=== PATIENT | female | born 1980 | race Caucasian/White ===

== ENCOUNTER 2017-01-09 09:15 | Emergency (ER) | payer BC, OTHER ==
[2017-01-09] MEDS ORDERED: Ondansetron INJ* 2 MG/ML VIAL IV ONE (09:33)
[2017-01-09] MEDS: NS 0.9% 1000 ML* 2,000 ML IV ONE ×2 (09:49→10:46)
[2017-01-09 09:59] LABS: Hematocrit 42 % (35-47); Hemoglobin 14.1 g/dl (12.0-16.0); Mean Corpuscular HGB Conc 34 g/dl (31-36); Mean Corpuscular Hemoglobin 30 pg (27-31); Mean Corpuscular Volume 90 fL (80-97); Mean Platelet Volume 10 um3 (7.4-10.4); Red Blood Count 4.64 10^6/ul (4.0-5.4); Red Cell Distribution Width 15 % (10.5-15); White Blood Count 7.6 10^3/ul (3.5-10.8)
[2017-01-09 10:16] LABS: Albumin 3.4 g/dL (3.2-5.2); Calcium 8.3 mg/dL (8.6-10.3); EGFR African American 177.6 (>60); EGFR Non-African American 138.1 (>60); Globulin 3.2 g/dL (2-4); Potassium 3.6 mmol/L (3.5-5.0); Total Bilirubin 0.5 mg/dL (0.2-1.0); Total Protein 6.6 g/dL (6.4-8.9)
[2017-01-09 12:45] LABS: Urine Bilirubin Negative (Negative); Urine Glucose Negative (Negative); Urine Nitrite Negative (Negative)
[2017-01-09 15:30] VITALS: BP 155/70
--- NOTE | 2017-01-10 22:18 | ED ---
Yolette Wallace Rebecca, scribed for Mat Plasencia MD on 01/09/17 at 0941 . - HPI Summary HPI Summary: Pt is a 36 y/o F who presents to ED c/o abd pain. Pain began suddenly last night and has been intermittent since onset. Pain is diffuse without radiation, ranked 5/10 and characterized as cramping. Sx aggravated and alleviated by nothing. Additionally c/o V/D. reports she cannot keep water down. Denies back pain, dysuria and vaginal bleeding or discharge. Called her widwife today who advised she be evaluated by [facility] [place] ED for hydration. Pt is 17 weeks . A0. and daughter are experiencing similar sx. - History of Current Complaint Chief Complaint: EDAbdPain Stated Complaint: 17WKS PREG/POSS DEHYDRATION Time Seen by Provider: 01/09/17 09:32 Hx Obtained From: Patient Chief Complaint: Pain - Abdominal pain, Other: - V/D Onset/Duration: Started Days Ago - Last night Timing: Intermittent Severity: Moderate Current Severity: Moderate Pain Intensity: 5 Location of Pain: Diffuse Character: Cramping Aggravating Factors: Nothing Alleviating Factors: Nothing Associated Signs and Symptoms: Positive: Vomiting, Other: - Diarrhea. Negative : Back Pain, Urinary Symptoms, Vaginal Bleeding or Discharge - Assessment SAB: 0 IEA: 0 - Additional Pertinent History Maternal Blood Type and Rh: A Positive - Allergies/Home Medications Allergies/Adverse Reactions: Allergies Allergy/AdvReac Type Severity Reaction Status Date / Time Erythromycin Allergy Vomiting Verified 01/09/17 09:20 PMH/Surg Hx/FS Hx/Imm Hx Previously Healthy: Yes Endocrine/Hematology History: Denies: Hx Diabetes Cardiovascular History: Denies: Hx Hypertension Infectious Disease History: No Infectious Disease History: Reports: Traveled Outside the [place] in Last 30 Days - [place] - Family History Known Family History: Positive: Hypertension, Other - HLD, bowel CA - Social History Alcohol Use: None Substance Use Type: Reports: None Smoking Status (MU): Never Smoked Tobacco Have You Smoked in the Last Year: No Review of Systems Negative: Fever, Chills Negative: Photophobia, Erythema Negative: Sore Throat Negative: Chest Pain Negative: Shortness Of Breath, Cough Positive: Abdominal Pain - diffuse cramping, Vomiting, Diarrhea Positive: other - Denies vaginal bleeding. Negative: dysuria, discharge, hematuria Negative: Arthralgia, Edema Negative: Rash Neurological: Other - Denies dizziness All Other Systems Reviewed And Are Negative: Yes Physical Exam - Summary Physical Exam Summary: Constitutional: Well-developed, Well-nourished, Alert. (-) Distressed Skin: Warm, Dry HENT: Dry mucous membranes. Eyes: Conjunctiva normal Neck: Musculoskeletal ROM normal neck. (-) JVD, (-) Stridor, (-) Tracheal deviation Cardio: Rhythm regular, rate normal, Heart sounds normal; Intact distal pulses; The pedal pulses are 2+ and symmetric. Radial pulses are 2+ and symmetric. (-) Murmur Pulmonary/Chest wall: Effort normal. (-) Respiratory distress, (-) Wheezes, (-) Rales Abd: Soft, (-) Tenderness, (-) Distension, (-) Guarding, (-) Rebound Musculoskeletal: (-) Edema Lymph: (-) Cervical adenopathy Neuro: Alert, Oriented x3 Psych: Mood and affect Normal - Physical Exam Triage Information Reviewed: Yes Vital Signs Reviewed: Yes Diagnostics - Vital Signs Vital Signs Temp Pulse Resp BP Pulse Ox 01/09/17 09:21 98.2 F 91 15 119/52 99 - Laboratory Result Diagrams: 01/09/17 09:45 01/09/17 09:45 Lab Statement: Any lab studies that have been ordered have been reviewed, and results considered in the medical decision making process. Re-Evaluation - Re-Evaluation First Eval Re-Evaluation Time: 11:18 Change: Improved Comment: Pt is feeling better, taking a PO challenge now. Course/Dx - Course Assessment/Plan: Pt is a 36 y/o F with a CC of diffuse, cramping abd pain. Additionally c/o V/D. Denies back pain, dysuria and vaginal bleeding or discharge. Pt is 17 weeks . Pt will be D/C with a dx of gastroenteritis and dehydration with a followup with her [employer]. - Diagnoses Provider Diagnoses: Gastroenteritis, Dehydration Discharge - Discharge Plan Condition: Stable Disposition: HOME Prescriptions: Ondansetron ODT TAB* [Zofran Odt TAB*] 4 mg PO Q8H PRN #15 tab.odt PRN Reason: Nausea/Vomiting Patient Education Materials: Dehydration (ED), Gastroenteritis (ED) Referrals: Liana Brush MD [Primary Care Provider] - Additional Instructions: Follow up with your [employer] in the next 3 days. Return to the Emergency Department for returning or worsening symptoms. The documentation as recorded by the Yolette londono Rebecca accurately reflects the service I personally performed and the decisions made by me, Mat Plasencia MD.
== END 2017-01-09 12:50 | disposition home or self-care (01) ==
LOC: ED 09:15
DX: K52.9 Noninfective gastroenteritis and colitis, unspecified (principal); E86.0 Dehydration; R11.10 Vomiting, unspecified; R19.7 Diarrhea, unspecified
CPT/HCPCS: 36415; 80053; 81003; 83605; 83690; 85025; 96374; 99282; J2405

== ENCOUNTER 2017-06-11 01:44 | Inpatient (IN) | payer BC ==
[2017-06-11 02:38] LABS: Hematocrit 40 % (35-47); Hemoglobin 13.5 g/dl (12.0-16.0); Mean Corpuscular HGB Conc 34 g/dl (31-36); Mean Corpuscular Hemoglobin 32 pg (27-31); Mean Corpuscular Volume 96 fL (80-97); Mean Platelet Volume 10 um3 (7.4-10.4); Red Blood Count 4.18 10^6/ul (4.0-5.4); Red Cell Distribution Width 14 % (10.5-15); White Blood Count 10.6 10^3/ul (3.5-10.8)
[2017-06-11] MEDS ORDERED: OBEPIDURAL* 250 ML ONE (04:41)
[2017-06-11] MEDS ORDERED: EPHEDrine (Pressors)* 50 MG/ML VIAL IV PUSH PRN (05:09)
[2017-06-11] MEDS ORDERED: Phenylephrine IV* 40 MCG/ML 10 ML SYRINGE IV PUSH PRN (05:09)
[2017-06-11] MEDS ORDERED: Famotidine TAB* 20 MG PO PRN (05:09)
[2017-06-11] MEDS ORDERED: Sodium Citrate/Citric Acid* 15 ML UDC PO PRN (05:09)
[2017-06-11] MEDS ORDERED: Bupivacaine 0.25% SDV* 30 ML ONE (05:19)
[2017-06-11] MEDS ORDERED: OBEPIDURAL* 250 ML EPIDURAL SCH (06:00)
[2017-06-11] MEDS ORDERED: Oxytocin in LR* 20 UNITS/1,000 ML BAG IVPB ONE (08:11)
[2017-06-11] MEDS ORDERED: Acetaminophen TAB* 325 MG PO PRN (08:51)
[2017-06-11] MEDS ORDERED: Glycerin ADULT SUPP PR PRN (08:51)
[2017-06-11] MEDS ORDERED: oxyCODONE/Acetamin 5/325 MG* TAB PO PRN (08:51)
[2017-06-11] MEDS ORDERED: Dibucaine 1% 28.35 GM TUBE PR PRN (08:51)
[2017-06-11] MEDS ORDERED: Oxytocin in LR* 20 UNITS/1,000 ML BAG IVPB SCH (09:00)
[2017-06-11] MEDS: Docusate CAP* 100 MG PO SCH ×3 (09:57→20:37)
[2017-06-11] MEDS: Ibuprofen TAB* 600 MG PO PRN ×2 (12:22→18:05)
[2017-06-11] MEDS: Witch Hazel PAD* JAR TOPICAL PRN (18:07)
[2017-06-11] MEDS: Simethicone CHEW TAB* 80 MG PO SCH (19:11)
[2017-06-12] MEDS: Ibuprofen TAB* 600 MG PO PRN ×4 (00:55→20:05)
[2017-06-12] MEDS: Docusate CAP* 100 MG PO SCH ×3 (08:07→20:09)
[2017-06-12 08:28] LABS: Hematocrit 33 % (35-47); Hemoglobin 10.9 g/dl (12.0-16.0); Mean Corpuscular HGB Conc 33 g/dl (31-36); Mean Corpuscular Hemoglobin 32 pg (27-31); Mean Corpuscular Volume 97 fL (80-97); Mean Platelet Volume 10 um3 (7.4-10.4); Red Cell Distribution Width 14 % (10.5-15); White Blood Count 11.2 10^3/ul (3.5-10.8)
[2017-06-12 20:18] VITALS: BP 122/63
[2017-06-12] MEDS: Witch Hazel PAD* JAR TOPICAL PRN (21:39)
[2017-06-13] MEDS: Ibuprofen TAB* 600 MG PO PRN (04:09)
== END 2017-06-13 12:55 | disposition home or self-care (01) | DRG 542 ==
LOC: MCHOBOUT 01:44 → MCHOB 02:19 → UNDODISIN 06-13 12:16
PROVIDERS: ADMIT Obstetrics & Gynecology; ATTEND Obstetrics & Gynecology
PROC: 10E0XZZ Delivery of Products of Conception, External Approach (ICD-10-PCS; principal; 2017-06-11)
PROC: 0DQR0ZZ Repair Anal Sphincter, Open Approach (ICD-10-PCS; 2017-06-11)
DX: O34.211 Maternal care for low transverse scar from previous cesarean delivery (principal); O70.20 Third degree perineal laceration during delivery, unspecified; Z37.0 Single live birth; Z3A.39 39 weeks gestation of pregnancy
CPT/HCPCS: 36415; 85025; 85027; 86850; 86900; 86901; A9270-GY

== ENCOUNTER 2019-04-21 19:13 | Emergency (ER) | payer BC ==
[2019-04-21 19:34] VITALS: BP 131/73
[2019-04-21] MEDS ORDERED: Lidocaine 2% VISCOUS* 15 ML UDC PO ONE (19:58)
[2019-04-21] MEDS ORDERED: Al Hydrox/Mg Hydrox/Simet LIQ* 30 ML UDC PO ONE (19:58)
--- NOTE | 2019-04-21 20:06 | UC ---
Abdominal Pain Female HPI - HPI Summary HPI Summary: 38-year-old female comes in with a chief complaint of epigastric pain. Started about 2 days ago. Today she ate at 2:00 the pain got much worse. She reports about a 5 out of 10 pain. Denies radiation to the back. It does radiate up. It's more tender to palpation. She's taken some [id number] antacid medicines which helped briefly but then the pains come back. No shortness of breath. She's had a hysterectomy but she still has her gallbladder. She had a similar episode years ago and had an EGD and overall believes the diagnosis was gastritis. - History of Current Complaint Chief Complaint: UCAbdominalPain Stated Complaint: ABD PAIN Time Seen by Provider: 04/21/19 19:44 Pain Intensity: 7 Allergies/Adverse Reactions: Allergies Allergy/AdvReac Type Severity Reaction Status Date / Time erythromycin base Allergy Vomiting Verified 04/21/19 19:34 Home Medications: Home Medications NK [No Home Medications Reported] 04/21/19 [History Confirmed 04/21/19] PMH/Surg Hx/FS Hx/Imm Hx Previously Healthy: Yes - Surgical History Surgical History: Yes Surgery Procedure, Year, and Place: C SECTION - Family History Known Family History: Positive: Hypertension, Other - HLD, bowel CA - Social History Alcohol Use: Occasionally Substance Use Type: None Smoking Status (MU): Never Smoked Tobacco Have You Smoked in the Last Year: No - Immunization History Most Recent Influenza Vaccination: up to date Most Recent Pneumonia Vaccination: not indicated Review of Systems All Other Systems Reviewed And Are Negative: Yes Constitutional: Positive: Negative Skin: Positive: Negative Eyes: Positive: Negative ENT: Positive: Negative Respiratory: Positive: Negative Cardiovascular: Positive: Negative Gastrointestinal: Positive: Abdominal Pain, Diarrhea, Nausea Motor: Positive: Negative Neurovascular: Positive: Negative Musculoskeletal: Positive: Negative Neurological: Positive: Negative Psychological: Positive: Negative Is Patient Immunocompromised?: No Physical Exam Triage Information Reviewed: Yes Appearance: Well-Appearing, Well-Nourished, Pain Distress - MILD Vital Signs: Initial Vital Signs Temp 97.3 F 04/21/19 19:28 Pulse 63 04/21/19 19:28 Resp 18 04/21/19 19:28 BP 131/73 04/21/19 19:28 Pulse Ox 100 04/21/19 19:28 Vital Signs Reviewed: Yes Eye Exam: Normal Eyes: Positive: Conjunctiva Clear Neck: Positive: Supple Respiratory: Positive: Lungs clear, Normal breath sounds, No respiratory distress Cardiovascular: Positive: RRR Abdomen Description: Positive: Other: - TENDER EPIGASTRIUM Bowel Sounds: Positive: Present Musculoskeletal: Positive: Strength Intact, ROM Intact Neurological: Positive: Alert, Muscle Tone Normal Psychological: Positive: Age Appropriate Behavior Skin Exam: Normal Diagnostics - EKG Cardiac Rate: Bradycardia - AT 2012 Cardiac Rhythm: Sinus: Normal - 58BPM Ectopy: None ST Segment: Normal Abd Pain Female Course/Dx - Course Course Of Treatment: I discussed the EKG with the patient and her . I do not see any ischemic changes. Patient is tender in the epigastrium less tender in the right upper quadrant. Patient's symptoms were greatly improved after receiving by mouth liquid Maalox and lidocaine. We discussed the possibility of a gallbladder problem. I let her know that if anything worse with pain fevers bleeding chest pain she should go the emergency department for further further evaluation treatment. - Differential Dx/Diagnosis Provider Diagnosis: Epigastric abdominal pain Discharge - Sign-Out/Discharge Documenting (check all that apply): Patient Departure All imaging exams completed and their final reports reviewed: No Studies - Discharge Plan Condition: Stable Disposition: HOME Patient Education Materials: Epigastric Pain (ED) Referrals: Liana Brush MD [Primary Care Provider] - Additional Instructions: FOLLOW UP WITH YOUR DOCTOR IF NOT COMPLETELY IMPROVED. GO TO THE EMERGENCY DEPARTMENT IF YOUR CONDITION WORSENS; PAIN, FEVER, CHEST PAIN, BLOOD IN YOUR STOOL OR VOMIT OR ANY QUESTIONS OR CONCERNS. - Billing Disposition and Condition Condition: STABLE Disposition: Home
== END 2019-04-21 20:51 | disposition home or self-care (01) ==
LOC: UCEAST 19:13
DX: R10.13 Epigastric pain (principal)
CPT/HCPCS: 93005; 99212; A9270-GY; G0463

== ENCOUNTER 2019-04-22 02:32 | Emergency (ER) | payer BC ==
--- NOTE | 2019-04-22 03:14 | ED ---
Abdominal Pain/Female - HPI Summary HPI Summary: Pt is a 38 y/o F presenting to the ED with a chief complaint of epigastric pain first onset on 04/20/19 described as burning. She was fine on 04/21/19, and after lunch the pain became severe enough that she went to urgent care where she received a GI cocktail. That helped initially, but around 20 minutes later the pain came back. Since then, shes been sleeping in 1-hour blocks, and since 99 , the pain has been much worse. She reports gas associated with the abd pain, nause and vomiting, and some back pain probably d/t mowing the lawn a couple of days ago. She denies fevers or diarrhea. - History of Current Complaint Chief Complaint: EDAbdPain Stated Complaint: "UPPER ABD PAIN" PER PT Time Seen by Provider: 04/22/19 02:56 Hx Obtained From: Patient Onset/Duration: Sudden Onset, Lasting Hours, Still Present Timing: Hours Severity Initially: Mild Severity Currently: Moderate Pain Intensity: 5 Pain Scale Used: 0-10 Numeric Location: Epigastric Radiates: No Character: Burning Aggravating Factor(s): Nothing Alleviating Factor(s): Nothing Associated Signs and Symptoms: Positive: Back Pain, Other: - gas. Negative: Fever, Diarrhea Allergies/Adverse Reactions: Allergies Allergy/AdvReac Type Severity Reaction Status Date / Time erythromycin base Allergy Vomiting Verified 04/22/19 02:43 PMH/Surg Hx/FS Hx/Imm Hx Previously Healthy: Yes Endocrine/Hematology History: Denies: Hx Diabetes Cardiovascular History: Denies: Hx Hypertension, Hx Pacemaker/ICD History: Denies: Hx Renal Disease Sensory History: Denies: Hx Hearing Aid Psychiatric History: Denies: Hx Panic Disorder - Surgical History Surgery Procedure, Year, and Place: C SECTION Infectious Disease History: No Infectious Disease History: Denies: Traveled Outside the [place] in Last 30 Days - Family History Known Family History: Positive: Hypertension, Other - HLD, bowel CA - Social History Alcohol Use: Occasionally Hx Substance Use: No Substance Use Type: Reports: None Hx Tobacco Use: No Smoking Status (MU): Never Smoked Tobacco Have You Smoked in the Last Year: No Review of Systems Negative: Fever Positive: Abdominal Pain, Vomiting, Nausea. Negative: Diarrhea Positive: Myalgia - back pain All Other Systems Reviewed And Are Negative: Yes Physical Exam - Summary Physical Exam Summary: Appearance: Middle-aged woman who appears to be in colicky pain Skin: Warm, dry, no obvious rash Eyes: sclera anicteric, no conjunctival pallor ENT: mucous membranes moist, pharynx appears normal Neck: Supple, nontender Respiratory: Clear to auscultation, no signs of respiratory distress Cardiovascular: Normal S1, S2. No murmurs. Normal distal pulses in tibial and radial bilaterally. Abdomen: Soft, epigastric tenderness, normal active bowel sounds present Musculoskeletal: Normal, Strength/ROM Intact Neurological: A&Ox3, awake and alert, mentation is normal, speech is fluent and appropriate Psychiatric: affect is normal, does not appear anxious or depressed Triage Information Reviewed: Yes Vital Signs On Initial Exam: Initial Vitals Temp Pulse Resp BP Pulse Ox 98.4 F 75 16 157/83 100 04/22/19 02:41 04/22/19 02:41 04/22/19 02:41 04/22/19 02:41 04/22/19 02:41 Vital Signs Reviewed: Yes Diagnostics - Vital Signs Vital Signs Temp Pulse Resp BP Pulse Ox 04/22/19 02:41 98.4 F 75 16 157/83 100 - Laboratory Result Diagrams: 04/22/19 03:18 04/22/19 03:17 Lab Statement: Any lab studies that have been ordered have been reviewed, and results considered in the medical decision making process. - CT CT abd/pelv CT Interpretation Completed By: Radiologist Summary of CT Findings: There are bilateral adnexal cysts noted the largest measuring up to 2.5 CM. Pelvic sonogram may be performed for further evaluation. ED physician has reviewed this report. - EKG 0305 Cardiac Rate: NL - 62bpm EKG Rhythm: Sinus Rhythm ST Segment: Normal Ectopy: None Summary of EKG Findings: EKG at 0305 shows NSR at 62bpm with no STEMI. Abdominal Pain Fem Course/Dx - Course Course Of Treatment: Pt is a 38 y/o F presenting to the ED with a chief complaint of epigastric pain first onset on 04/20/19. She had this burning pain earlier in the day, went to urgent care, received a GI cocktail which briefly alleviated the pain, but since 99, the pain has been much worse. She reports gas associated with the abd pain, nausea and vomiting, and some back pain probably d/t mowing the lawn a couple of days ago. She denies fevers or diarrhea. EKG at 0305 shows NSR at 62bpm with no STEMI. CT abd/pelv shows: There are bilateral adnexal cysts noted the largest measuring up to 2.5 CM. Pelvic sonogram may be performed for further evaluation. Pt will be signed out to Dr. Liu pending a US of the gallbladder. - Diagnoses Provider Diagnoses: Epigastric pain Discharge - Sign-Out/Discharge Documenting (check all that apply): Sign-Out Patient Signing out patient TO: Michelle Liu Patient Received Moderate/Deep Sedation with Procedure: No - Discharge Plan Condition: Stable Disposition: HOME Prescriptions: HYDROcodone/ACETAMIN 5-325 MG* [[place] 5-325 TAB*] 1 tab PO Q6H PRN #12 tab MDD 4 PRN Reason: Severe Pain Ondansetron ODT TAB* [Zofran Odt TAB*] 4 mg PO Q8H PRN #20 tab.odt PRN Reason: Nausea Pantoprazole TAB * [Protonix TAB*] 40 mg PO DAILY #30 tab Patient Education Materials: Epigastric Pain (ED) Referrals: Warren Moore MD [Medical Doctor] - 2 Days Liana Brush MD [Primary Care Provider] - 2 Days Additional Instructions: The abdomen and pelvis to did not show any significant abnormalities other than bilateral adnexal cysts. Gallbladder ultrasound did not show any gallstones. Your urine did not show any white cells or red cells. The remainder of your labs were within normal limits. We did not find a definite cause for your epigastric pain while you in the emergency department. We advised that you follow up with Dr. Brush and gastroenterology to get further evaluation of your epigastric pain. In the emergency department you were given morphine twice and Zofran twice. Your also given ketorolac 10mg IV for pain. You were also given pantoprazole 40mg orally. Dr. Liu is also prescribing pantoprazole (a PPI) for you in addition to Zofran and hydrocodone for severe pain. Please return to the emergency department if you have new or worsening symptoms. - Billing Disposition and Condition Condition: STABLE Disposition: Home - Attestation Statements Document Initiated by Scribe: Yes Documenting Scribe: Deana Merida Provider For Whom Scribe is Documenting (Include Credential): Vlad Varela MD. Scribe Attestation: Deana Wallace, arnolded for Vlad Varlea MD. on 04/26/19 at 0417. Scribe Documentation Reviewed: Yes Provider Attestation: The documentation as recorded by the [email or web address] accurately reflects the service I personally performed and the decisions made by me, Vlad Varela MD. Status of Scribe Document: Viewed
[2019-04-22] MEDS ORDERED: Ketorolac INJ* 30 MG/ML 1 ML VIAL IV PUSH ONE (03:23)
[2019-04-22] MEDS ORDERED: Ondansetron INJ* 2 MG/ML VIAL IV ONE ×2 (03:23→07:30)
[2019-04-22] MEDS ORDERED: Morphine 4 MG/ML VIAL (1 ml) 4 MG/ML VIAL IV ONE ×2 (03:23→07:29)
[2019-04-22] MEDS ORDERED: NS 0.9% 1000 ML** 2,000 ML IV ONE (03:23)
[2019-04-22 03:26] LABS: ABS Lymphocytes 1.8 10^3/ul (1.0-4.8); ABS Monocytes 0.8 10^3/ul (0-0.8); ABS Neutrophils 7.9 10^3/ul (1.5-7.7); Eosinophil % 0.1 %; Hematocrit 42 % (35-47); Hemoglobin 14.1 g/dL (12.0-16.0); Lymphocyte % 17.1 %; Mean Corpuscular HGB Conc 33 g/dL (31-36); Mean Corpuscular Hemoglobin 30 pg (27-31); Mean Corpuscular Volume 90 fL (80-97); Mean Platelet Volume 9.6 fL (7.4-10.4); Nucleated Red Blood Cells % 0.1; Platelet Count 240 10^3/uL (150-450); Red Blood Count 4.68 10^6 /uL (3.70-4.87); Red Cell Distribution Width 13 % (10.5-15); White Blood Count 10.6 10^3/uL (3.5-10.8)
[2019-04-22 03:42] LABS: ALT 13 U/L (7-52); AST 15 U/L (13-39); Albumin 4.7 g/dL (3.2-5.2); Albumin/Globulin Ratio 1.5 (1-3); Alkaline Phosphatase 54 U/L (34-104); Anion Gap 8 mmol/L (2-11); BUN/Creatinine Ratio 14.5 (8-20); Blood Urea Nitrogen 11 mg/dL (6-24); C Reactive Protein 2.91 mg/L (<8.01); CO2 Carbon Dioxide 21 mmol/L (22-32); Calcium 9.8 mg/dL (8.6-10.3); Chloride 105 mmol/L (101-111); EGFR Non-African American 84.3 (>60); Globulin 3.2 g/dL (2-4); Glucose 110 mg/dL (70-100); Potassium 3.7 mmol/L (3.5-5.0); Sodium 134 mmol/L (135-145); Total Protein 7.9 g/dL (6.4-8.9)
[2019-04-22 03:48] LABS: HCG Pregnancy < 0.60 mIU/mL
[2019-04-22] MEDS ORDERED: Iodixanol* (CONTRAST) 320 MG/ML 100 ML SDV IV ONE (04:44)
[2019-04-22 06:48] LABS: Urine Appearance Clear; Urine Bilirubin Negative (Negative); Urine Blood Negative (Negative); Urine Color Colorless; Urine Glucose Negative (Negative); Urine Ketones Negative (Negative); Urine Nitrite Negative (Negative); Urine Protein Negative (Negative); Urine Specific Gravity 1.023 (1.010-1.030); Urine Urobilinogen Negative (Negative)
--- NOTE | 2019-04-22 07:22 | ED ---
Progress - Progress Note Progress Note: Patient is received as a sign out from Dr. Varela to Dr. Venegas at 0700 04/22/19 pending US gallbladder of patient. 0717 - Patient reports continued epigastric pain that is somewhat relieved after morphine and ketorolac, and she is agreeable to proceed with further evaluation. GALLBLADDER IMPRESSION: #. Negative RIGHT upper quadrant ultrasound. THIS REPORT WAS REVIEWED BY DR. VENEGAS. 0921 - Epigastric pain is controlled. Discussed results of US. Patient favors getting proton pump inhibitor, she will be discharged to home and follow up with Dr. Brush. Re-Evaluation - Re-Evaluation First Eval Re-Evaluation Time: 07:17 Change: Improved Comment: 0717 - Patient reports continued epigastric pain that is somewhat relieved after morphine and ketorolac, and she is agreeable to proceed with further evaluation. Second Eval Re-Evaluation Time: 09:21 Change: Improved Comment: 0921 - Epigastric pain is controlled. Discussed results of US. Patient favors getting proton pump inhibitor, she will be discharged to home and follow up with Dr. Brush. Course/Dx - Course Course Of Treatment: Patient is received as a sign out from Dr. Varela to Dr. Venegas at 0700 pending US gallbladder of patient. 0717 - Patient reports continued epigastric pain that is somewhat relieved after morphine and ketorolac , and she is agreeable to proceed with further evaluation. During ED course, patient given morphine 4 mg IV and Zofran 4 mg IV. GALLBLADDER IMPRESSION: #. Negative RIGHT upper quadrant ultrasound. 0921 - Epigastric pain is controlled. Discussed results of US. Patient favors getting proton pump inhibitor, she will be discharged to home and follow up with Dr. Brush. Patient received 40 mg protonix tab.(national shortage of IV protonix) - Diagnoses Provider Diagnoses: Epigastric pain Discharge - Sign-Out/Discharge Documenting (check all that apply): Patient Departure - discharge Patient Received Moderate/Deep Sedation with Procedure: No - Discharge Plan Condition: Stable Disposition: HOME Prescriptions: HYDROcodone/ACETAMIN 5-325 MG* [[place] 5-325 TAB*] 1 tab PO Q6H PRN #12 tab MDD 4 PRN Reason: Severe Pain Ondansetron ODT TAB* [Zofran Odt TAB*] 4 mg PO Q8H PRN #20 tab.odt PRN Reason: Nausea Pantoprazole TAB * [Protonix TAB*] 40 mg PO DAILY #30 tab Patient Education Materials: Epigastric Pain (ED) Referrals: Warren Moore MD [Medical Doctor] - 2 Days Liana Brush MD [Primary Care Provider] - 2 Days Additional Instructions: The abdomen and pelvis to did not show any significant abnormalities other than bilateral adnexal cysts. Gallbladder ultrasound did not show any gallstones. Your urine did not show any white cells or red cells. The remainder of your labs were within normal limits. We did not find a definite cause for your epigastric pain while you in the emergency department. We advised that you follow up with Dr. Brush and gastroenterology to get further evaluation of your epigastric pain. In the emergency department you were given morphine twice and Zofran twice. Your also given ketorolac 10mg IV for pain. You were also given pantoprazole 40mg orally. Dr. Venegas is also prescribing pantoprazole (a PPI) for you in addition to Zofran and hydrocodone for severe pain. Please return to the emergency department if you have new or worsening symptoms. - Billing Disposition and Condition Condition: STABLE Disposition: Home - Attestation Statements Document Initiated by [employer]: Yes Documenting Scribe: RAUL RAINEY Provider For Whom [employer] is Documenting (Include Credential): JENNIFER VENEGAS MD Scribe Attestation: RAUL Wallace scribed for JENNIFER VENEGAS MD on 04/25/19 at 0225. Scribe Documentation Reviewed: Yes Provider Attestation: The documentation as recorded by the RAUL londono accurately reflects the service I personally performed and the decisions made by , JENNIFER VENEGAS MD Status of Scribe Document: Viewed
[2019-04-22] MEDS ORDERED: Pantoprazole IV* 40 MG IV ONE (09:36)
[2019-04-22] MEDS ORDERED: Pantoprazole TAB * 40 MG TAB ONE (10:25)
[2019-04-22] MEDS ORDERED: Pantoprazole TAB * 40 MG TAB PO ONE (10:27)
[2019-04-22 10:36] VITALS: BP 132/59
== END 2019-04-22 10:36 | disposition home or self-care (01) ==
LOC: ED 02:32
DX: R10.13 Epigastric pain (principal); M54.9 Dorsalgia, unspecified; R11.2 Nausea with vomiting, unspecified
CPT/HCPCS: 36415; 74177; 76705; 80053; 81003; 83690; 84484; 84702; 85025; 86140; 93005; 99284; A9270-GY; J1885; J2270; J2405; Q9967